=== PATIENT | female | born 1955 | race Caucasian/White ===

== ENCOUNTER 2017-07-11 17:43 | Inpatient (IN) ==
[2017-07-11] MEDS ORDERED: ONDANSETRON 4 MG/2 ML VIAL IV STA (19:02)
[2017-07-11] MEDS ORDERED: NITROGLYCERIN 2% OINT 1 INCH/GM PACK TOP STA (19:02)
[2017-07-11] MEDS ORDERED: ASPIRIN 325 MG TABLET PO STA (19:02)
[2017-07-11 19:07] LABS: Basophils # 0.1 10*3/uL (0.0-0.2); Eosinophils # 0.1 10*3/uL (0.0-0.87); Eosinophils % 1.3 % (0.00-10.9); Hematocrit 41.1 VOL% (35.7-47.0); Hemoglobin 13.7 GM/DL (12.0-16.0); Immature Granulocytes % 0.5 %; Immature Granulocytes Absolute 0.05 #; Lymphocytes # 2.6 10*3/uL (1.4-4.0); Mean Corpuscular HGB Conc 33.3 GM/DL (32-36); Mean Corpuscular Hemoglobin 30 PG (27-34); Mean Corpuscular Volume 90.1 FL (87-102); Mean Platelet Volume 9.7 FL (9.6-12.0); Monocytes # 0.7 10*3/uL (0.11-0.8); Monocytes % 6.6 % (1.7-12.7); Neutrophils # 6.3 10*3/uL (1.4-7.4); Neutrophils % 64.6 % (38.7-73.9); Platelet Count 356 T/CUMM (130-400); Red Blood Count 4.56 MC/CUMM (3.8-5.5); Red Cell Distribution Width 12.7 % (9.3-17.3); White Blood Count 9.8 T/CUMM (4-12)
[2017-07-11] MEDS ORDERED: KETOROLAC 30 MG/1 ML VIAL IV STA (19:10)
[2017-07-11 19:24] LABS: Alanine Aminotransferase 16 U/L (13-56); Alkaline Phosphatase 95 U/L (45-117); Aspartate Amino Transferase 12 U/L (0-37); Bilirubin,Total < 0.39 MG/DL (0.2-1.0); Blood Urea Nitrogen 18 MG/DL (7-18); Calcium 8.4 MG/DL (8.5-10.1); Glucose 222 MG/DL (74-106); Sodium 136 MMOL/L (136-145); Total Protein 7.2 G/DL (6.4-8.3)
[2017-07-11] MEDS ORDERED: ASPIRIN 325 MG TABLET ONE (19:45)
[2017-07-11] MEDS ORDERED: ONDANSETRON 4 MG/2 ML VIAL ONE (19:45)
[2017-07-11] MEDS ORDERED: NITROGLYCERIN 2% OINT 1 INCH/GM PACK TOP ONE (19:45)
[2017-07-11] MEDS ORDERED: KETOROLAC 30 MG/1 ML VIAL ONE (19:45)
[2017-07-11] MEDS ORDERED: ACETAMINOPHEN 325 MG TABLET PO PRN (20:32)
[2017-07-11] MEDS ORDERED: DOCUSATE SODIUM 100 MG CAPSULE PO PRN (20:32)
[2017-07-11] MEDS ORDERED: BENZONATATE 100 MG CAPSULE PO PRN (20:36)
[2017-07-11] MEDS ORDERED: METHOCARBAMOL 500 MG TABLET PO PRN (20:36)
[2017-07-11] MEDS ORDERED: DEXTROSE 50% 25 GM/50 ML VIAL IV PRN (20:41)
[2017-07-11] MEDS ORDERED: GLUCAGON 1 MG VIAL IM PRN (20:41)
[2017-07-11] MEDS ORDERED: TIAGABINE HCL PO SCH (21:00)
[2017-07-11] MEDS: POTASSIUM CHLORIDE 10 MEQ TABLET PO SCH (23:16)
[2017-07-11] MEDS: ENOXAPARIN 40 MG/0.4 ML SYRINGE SUBCUT SCH (23:16)
[2017-07-11] MEDS: ESTROGENS (CONJ) 0.625 MG TABLET PO SCH (23:17)
[2017-07-11] MEDS: CARVEDILOL 6.25 MG TABLET PO SCH (23:17)
[2017-07-11] MEDS: PRAVASTATIN 40 MG TABLET PO SCH (23:17)
[2017-07-11] MEDS: amLODIPine 10 MG TABLET PO SCH (23:17)
[2017-07-11] MEDS: DULoxetine 30 MG CAPSULE PO SCH (23:17)
[2017-07-11] MEDS: INSULIN REGULAR 100 UNIT/ML SUBCUT SCH (23:18)
[2017-07-11] MEDS: INSULIN GLARGINE 100 UNIT/ML SUBCUT SCH (23:18)
[2017-07-11] MEDS: LISINOPRIL/HCTZ 20-25 MG TABLET PO SCH (23:18)
[2017-07-11] MEDS: INSULIN LISPRO 100 UNIT/ML SUBCUT SCH (23:19)
[2017-07-11] MEDS: CLOBETASOL 0.05% CREAM 15 GM TUBE TOP SCH (23:32)
[2017-07-12 00:01] LABS: Risk Ratio 4.56
[2017-07-12 01:37] LABS: Basophils # 0.1 10*3/uL (0.0-0.2); Basophils % 0.7 % (0.0-0.8); Eosinophils # 0.1 10*3/uL (0.0-0.87); Eosinophils % 1.5 % (0.00-10.9); Hematocrit 36.1 VOL% (35.7-47.0); Hemoglobin 12.5 GM/DL (12.0-16.0); Immature Granulocytes % 1.2 %; Lymphocytes # 2.5 10*3/uL (1.4-4.0); Lymphocytes % 29.2 % (21.3-54.2); Mean Corpuscular HGB Conc 34.6 GM/DL (32-36); Mean Corpuscular Hemoglobin 31 PG (27-34); Mean Corpuscular Volume 88.9 FL (87-102); Mean Platelet Volume 9.4 FL (9.6-12.0); Monocytes # 0.6 10*3/uL (0.11-0.8); Monocytes % 7.3 % (1.7-12.7); Neutrophils # 5.1 10*3/uL (1.4-7.4); Neutrophils % 60.1 % (38.7-73.9); Platelet Count 300 T/CUMM (130-400); Red Blood Count 4.06 MC/CUMM (3.8-5.5); Red Cell Distribution Width 12.7 % (9.3-17.3); White Blood Count 8.5 T/CUMM (4-12)
[2017-07-12 02:06] LABS: Calcium 8.2 MG/DL (8.5-10.1); Osmolality,Calculated 284.1 MOS/KG (273-304); Potassium 4.1 MMOL/L (3.5-5.1)
[2017-07-12] MEDS: LEVOTHYROXINE 150 MCG TABLET PO SCH (06:16)
[2017-07-12] MEDS ORDERED: KETOROLAC 30 MG/1 ML VIAL IV ONE (08:07)
[2017-07-12] MEDS: INSULIN REGULAR 100 UNIT/ML SUBCUT SCH ×4 (08:51→22:49)
[2017-07-12] MEDS: INSULIN LISPRO 100 UNIT/ML SUBCUT SCH ×4 (08:51→22:47)
[2017-07-12] MEDS ORDERED: MAGNESIUM SULF RIDER 2 GM in PREMIX 1 EACH IV PRN (10:20)
[2017-07-12] MEDS ORDERED: POTASSIUM CHLORIDE RIDER 10 MEQ in PREMIX 1 EACH IV PRN (10:20)
[2017-07-12] MEDS ORDERED: DIAZEPAM 5 MG TABLET PO ONE (10:20)
[2017-07-12] MEDS ORDERED: diphenhydrAMINE CAP 25 MG CAPSULE PO ONE (10:20)
[2017-07-12] MEDS: CARVEDILOL 6.25 MG TABLET PO SCH ×2 (10:41→21:41)
[2017-07-12] MEDS: PANTOPRAZOLE 40 MG TABLET PO SCH (10:41)
[2017-07-12] MEDS: FUROSEMIDE 40 MG TABLET PO SCH ×2 (10:41→17:27)
[2017-07-12] MEDS: CLOBETASOL 0.05% CREAM 15 GM TUBE TOP SCH ×2 (10:41→21:41)
[2017-07-12] MEDS: ASPIRIN EC 81 MG TABLET PO SCH (10:42)
[2017-07-12] MEDS ORDERED: VERAPAMIL 5 MG/2 ML VIAL ONE (12:44)
[2017-07-12] MEDS ORDERED: HEPARIN/NACL 0.9% 2 UNITS/ML 2,000 ML IV ONE (12:44)
[2017-07-12] MEDS ORDERED: NITROGLYCERIN DRIP 50 MG/250 ML BOTTLE IV ONE (12:44)
[2017-07-12] MEDS ORDERED: LIDOCAINE 1% 20 ML VIAL ONE (12:44)
[2017-07-12] MEDS ORDERED: MIDAZOLAM 2 MG/2 ML VIAL ONE (13:20)
[2017-07-12] MEDS ORDERED: fentaNYL 100 MCG/2 ML VIAL ONE (13:20)
[2017-07-12] MEDS ORDERED: ENOXAPARIN 60 MG/0.6 ML SYRINGE ONE (13:31)
[2017-07-12] MEDS ORDERED: KETOROLAC 30 MG/1 ML VIAL IV PRN (14:18)
[2017-07-12] MEDS ORDERED: SODIUM CHLORIDE 0.45% 1,000 ML IV SCH (14:30)
[2017-07-12] MEDS: ONDANSETRON 4 MG/2 ML VIAL IV PRN (21:39)
[2017-07-12] MEDS: DULoxetine 30 MG CAPSULE PO SCH (21:40)
[2017-07-12] MEDS: LISINOPRIL/HCTZ 20-25 MG TABLET PO SCH (21:41)
[2017-07-12] MEDS: POTASSIUM CHLORIDE 10 MEQ TABLET PO SCH (21:41)
[2017-07-12] MEDS: amLODIPine 10 MG TABLET PO SCH (21:41)
[2017-07-12] MEDS: PRAVASTATIN 40 MG TABLET PO SCH (21:41)
[2017-07-12] MEDS: ESTROGENS (CONJ) 0.625 MG TABLET PO SCH (21:41)
[2017-07-12] MEDS: ENOXAPARIN 40 MG/0.4 ML SYRINGE SUBCUT SCH (21:42)
[2017-07-12] MEDS: INSULIN GLARGINE 100 UNIT/ML SUBCUT SCH (22:46)
[2017-07-13] MEDS: ONDANSETRON 4 MG/2 ML VIAL IV PRN (02:47)
[2017-07-13 05:13] LABS: Calcium 7.9 MG/DL (8.5-10.1); Osmolality,Calculated 279.2 MOS/KG (273-304); Potassium 4.5 MMOL/L (3.5-5.1)
[2017-07-13] MEDS: LEVOTHYROXINE 150 MCG TABLET PO SCH (06:10)
[2017-07-13] MEDS ORDERED: SODIUM CHLORIDE 0.9% 500 ML IV ONE (07:37)
[2017-07-13] MEDS: INSULIN REGULAR 100 UNIT/ML SUBCUT SCH ×4 (08:07→22:25)
[2017-07-13] MEDS: INSULIN LISPRO 100 UNIT/ML SUBCUT SCH ×4 (08:55→22:27)
[2017-07-13] MEDS: PANTOPRAZOLE 40 MG TABLET PO SCH (08:55)
[2017-07-13] MEDS: ASPIRIN EC 81 MG TABLET PO SCH (08:55)
[2017-07-13] MEDS: SODIUM CHLORIDE 0.9% 1,000 ML IV SCH ×2 (08:55→23:59)
[2017-07-13] MEDS: CARVEDILOL 6.25 MG TABLET PO SCH ×2 (08:55→22:25)
[2017-07-13] MEDS: CLOBETASOL 0.05% CREAM 15 GM TUBE TOP SCH ×2 (08:59→22:25)
[2017-07-13 12:45] LABS: Calcium 7.5 MG/DL (8.5-10.1); Potassium 4.3 MMOL/L (3.5-5.1)
[2017-07-13] MEDS: ESTROGENS (CONJ) 0.625 MG TABLET PO SCH (22:24)
[2017-07-13] MEDS: amLODIPine 10 MG TABLET PO SCH (22:25)
[2017-07-13] MEDS: PRAVASTATIN 40 MG TABLET PO SCH (22:25)
[2017-07-13] MEDS: DULoxetine 30 MG CAPSULE PO SCH (22:25)
[2017-07-13] MEDS: POTASSIUM CHLORIDE 10 MEQ TABLET PO SCH (22:25)
[2017-07-13] MEDS: ENOXAPARIN 40 MG/0.4 ML SYRINGE SUBCUT SCH (22:26)
[2017-07-13] MEDS: INSULIN GLARGINE 100 UNIT/ML SUBCUT SCH (22:30)
[2017-07-14 05:34] LABS: Calcium 7.2 MG/DL (8.5-10.1); Osmolality,Calculated 284.2 MOS/KG (273-304); Potassium 4.4 MMOL/L (3.5-5.1)
[2017-07-14] MEDS: LEVOTHYROXINE 150 MCG TABLET PO SCH (06:10)
[2017-07-14 08:03] VITALS: BP 129/61
[2017-07-14] MEDS: PANTOPRAZOLE 40 MG TABLET PO SCH (09:18)
[2017-07-14] MEDS: CARVEDILOL 6.25 MG TABLET PO SCH (09:18)
[2017-07-14] MEDS: ASPIRIN EC 81 MG TABLET PO SCH (09:18)
[2017-07-14] MEDS: INSULIN REGULAR 100 UNIT/ML SUBCUT SCH (09:18)
[2017-07-14] MEDS: INSULIN LISPRO 100 UNIT/ML SUBCUT SCH (09:19)
[2017-07-14] MEDS: CLOBETASOL 0.05% CREAM 15 GM TUBE TOP SCH (09:22)
[2017-07-14] MEDS ORDERED: INFLUENZA VIRUS VACCINE 0.5 ML SYRINGE IM ONE (11:19)
[2017-07-14] MEDS ORDERED: PNEUMOCOCCAL VACCINE (23 VALENT) 0.5 ML VIAL IM ONE (11:20)
== END 2017-07-14 11:57 | disposition home or self-care (01) | DRG 287 ==
LOC: UNDODISIN → N.ED 17:43 → N.EDINP 20:32 → N.TELES 21:51 → UNDODISIN 07-13 13:34
PROVIDERS: ADMIT Internal Medicine; ATTEND Internal Medicine
PROC: CLCCHCL (ICD-10-PCS; 2017-07-12 12:45)

== ENCOUNTER 2017-08-09 13:27 | Inpatient (IN) ==
[2017-08-09] MEDS ORDERED: MORPHINE 2 MG/1 ML SYRINGE IV STA (15:49)
[2017-08-09] MEDS ORDERED: ASPIRIN 325 MG TABLET PO STA (15:49)
[2017-08-09] MEDS ORDERED: ONDANSETRON 4 MG/2 ML VIAL IV STA (15:49)
[2017-08-09] MEDS ORDERED: FUROSEMIDE 100 MG/10 ML VIAL IV STA (15:49)
[2017-08-09] MEDS ORDERED: ALBUTEROL/IPRATROPIUM 3 ML NEB RESP TX STA (15:49)
[2017-08-09 15:56] LABS: Basophils # 0.1 10*3/uL (0.0-0.2); Basophils % 0.9 % (0.0-0.8); Eosinophils # 0.3 10*3/uL (0.0-0.87); Eosinophils % 3.3 % (0.00-10.9); Hemoglobin 12.6 GM/DL (12.0-16.0); Immature Granulocytes % 0.3 %; Immature Granulocytes Absolute 0.03 #; Lymphocytes # 2.1 10*3/uL (1.4-4.0); Lymphocytes % 22.3 % (21.3-54.2); Mean Corpuscular HGB Conc 32.3 GM/DL (32-36); Mean Corpuscular Hemoglobin 30 PG (27-34); Mean Corpuscular Volume 91.3 FL (87-102); Mean Platelet Volume 9.6 FL (9.6-12.0); Monocytes # 0.7 10*3/uL (0.11-0.8); Monocytes % 7.6 % (1.7-12.7); Neutrophils # 6.1 10*3/uL (1.4-7.4); Neutrophils % 65.6 % (38.7-73.9); Platelet Count 286 T/CUMM (130-400); Red Blood Count 4.27 MC/CUMM (3.8-5.5); Red Cell Distribution Width 12.9 % (9.3-17.3); White Blood Count 9.2 T/CUMM (4-12)
[2017-08-09] MEDS ORDERED: ONDANSETRON 4 MG/2 ML VIAL ONE (15:56)
[2017-08-09] MEDS ORDERED: MORPHINE 2 MG/1 ML SYRINGE ONE (15:56)
[2017-08-09] MEDS ORDERED: ASPIRIN 325 MG TABLET ONE (15:57)
[2017-08-09] MEDS ORDERED: FUROSEMIDE 100 MG/10 ML VIAL ONE (15:57)
[2017-08-09 16:01] LABS: PT Patient Result 10.3 SECS
[2017-08-09 16:23] LABS: Alanine Aminotransferase 21 U/L (13-56); Albumin 2.8 G/DL (3.4-5.0); Alkaline Phosphatase 118 U/L (45-117); Aspartate Amino Transferase 16 U/L (0-37); Blood Urea Nitrogen 14 MG/DL (7-18); Calcium 8.5 MG/DL (8.5-10.1); Glucose 102 MG/DL (74-106); Osmolality,Calculated 273.8 MOS/KG (273-304); Potassium 3.6 MMOL/L (3.5-5.1); Sodium 137 MMOL/L (136-145); Troponin I Only < 0.015 NG/ML (0.00-0.045)
[2017-08-09 17:02] LABS: Apearance,Urine CLEAR (Clear); Bacteria,Urine Occasional /HPF (Few); Bilirubin,Urine Negative (Negative); Blood, Urine Negative (Negative); Glucose,Urine (UA) Negative (Negative); Ketones,Urine Negative (Negative); Mucus,Urine Occasional /LPF (Occasional); Nitrite,Urine Negative (Negative); Protein,Urine Negative; RBC,Urine 5 /HPF (0-4); Urine Color Yellow (Yellow); Urine Specific Gravity 1.006 (1.001-1.035); Urine Urobilinogen < 2.0 EU/DL (0.2-1.0); WBC,Urine 1 /HPF (0-6)
[2017-08-09] MEDS ORDERED: GLUCAGON 1 MG VIAL IM PRN (17:43)
[2017-08-09] MEDS ORDERED: ACETAMINOPHEN 325 MG TABLET PO PRN (17:43)
[2017-08-09] MEDS ORDERED: DEXTROSE 50% 25 GM/50 ML VIAL IV PRN (17:43)
[2017-08-09] MEDS ORDERED: MAGNESIUM SULF RIDER 4 GM in PREMIX 1 EACH IV PRN (17:45)
[2017-08-09] MEDS ORDERED: MAGNESIUM SULF RIDER 2 GM in PREMIX 1 EACH IV PRN (17:45)
[2017-08-09] MEDS ORDERED: BENZONATATE 100 MG CAPSULE PO PRN (17:46)
[2017-08-09] MEDS ORDERED: METHOCARBAMOL 500 MG TABLET PO PRN (17:46)
[2017-08-09] MEDS ORDERED: traMADol 50 MG TABLET PO PRN (17:46)
[2017-08-09] MEDS ORDERED: TIAGABINE HCL PO SCH (21:00)
[2017-08-09] MEDS: PRAVASTATIN 40 MG TABLET PO SCH (22:47)
[2017-08-09] MEDS: CARVEDILOL 12.5 MG TABLET PO SCH (22:47)
[2017-08-09] MEDS: ESTROGENS (CONJ) 0.625 MG TABLET PO SCH (22:47)
[2017-08-09] MEDS: LIOTHYRONINE 25 MCG TABLET PO SCH (22:48)
[2017-08-09] MEDS: POTASSIUM CHLORIDE 10 MEQ TABLET PO SCH (22:48)
[2017-08-09] MEDS: DULoxetine 30 MG CAPSULE PO SCH (22:48)
[2017-08-09] MEDS: FUROSEMIDE 40 MG/4 ML VIAL IV SCH (22:49)
[2017-08-09] MEDS: ENOXAPARIN 40 MG/0.4 ML SYRINGE SUBCUT SCH (22:55)
[2017-08-10] MEDS: INSULIN LISPRO PROTAMINE/LISPRO 75/25 100 UNIT/ML SUBCUT SCH ×3 (00:07→22:48)
[2017-08-10] MEDS: INSULIN REGULAR 100 UNIT/ML SUBCUT SCH ×5 (00:07→22:48)
[2017-08-10 06:23] LABS: Basophils # 0.1 10*3/uL (0.0-0.2); Basophils % 0.6 % (0.0-0.8); Eosinophils # 0.3 10*3/uL (0.0-0.87); Eosinophils % 3.3 % (0.00-10.9); Hematocrit 34.4 VOL% (35.7-47.0); Hemoglobin 11.3 GM/DL (12.0-16.0); Immature Granulocytes % 0.3 %; Immature Granulocytes Absolute 0.02 #; Lymphocytes # 2.1 10*3/uL (1.4-4.0); Lymphocytes % 25.9 % (21.3-54.2); Mean Corpuscular HGB Conc 32.8 GM/DL (32-36); Mean Corpuscular Hemoglobin 30 PG (27-34); Mean Corpuscular Volume 90.8 FL (87-102); Mean Platelet Volume 9.4 FL (9.6-12.0); Monocytes # 0.8 10*3/uL (0.11-0.8); Monocytes % 9.4 % (1.7-12.7); Neutrophils # 4.8 10*3/uL (1.4-7.4); Neutrophils % 60.5 % (38.7-73.9); Platelet Count 251 T/CUMM (130-400); Red Blood Count 3.79 MC/CUMM (3.8-5.5); Red Cell Distribution Width 12.9 % (9.3-17.3)
[2017-08-10] MEDS: CLOBETASOL 0.05% CREAM 15 GM TUBE TOP SCH ×3 (06:54→21:52)
[2017-08-10 07:07] LABS: Osmolality,Calculated 282.4 MOS/KG (273-304); Thyroid Stimulating Hormone 4.42 uIU/ml (0.358-3.74)
[2017-08-10] MEDS: ONDANSETRON 4 MG/2 ML VIAL IV PRN (08:02)
[2017-08-10] MEDS: FUROSEMIDE 40 MG/4 ML VIAL IV SCH ×2 (08:03→15:50)
[2017-08-10] MEDS: LIOTHYRONINE 25 MCG TABLET PO SCH ×2 (10:35→21:50)
[2017-08-10] MEDS: ASPIRIN EC 81 MG TABLET PO SCH (10:35)
[2017-08-10] MEDS: LOSARTAN 50 MG TABLET PO SCH (10:36)
[2017-08-10] MEDS: POTASSIUM CHLORIDE 10 MEQ TABLET PO SCH ×2 (10:36→21:51)
[2017-08-10] MEDS: MAGNESIUM OXIDE 400 MG TABLET PO SCH (10:36)
[2017-08-10] MEDS: CARVEDILOL 12.5 MG TABLET PO SCH ×2 (10:36→21:51)
[2017-08-10] MEDS: PANTOPRAZOLE 40 MG TABLET PO SCH (10:37)
[2017-08-10] MEDS: DULoxetine 30 MG CAPSULE PO SCH (21:50)
[2017-08-10] MEDS: ENOXAPARIN 40 MG/0.4 ML SYRINGE SUBCUT SCH (21:51)
[2017-08-10] MEDS: PRAVASTATIN 40 MG TABLET PO SCH (21:51)
[2017-08-10] MEDS: ESTROGENS (CONJ) 0.625 MG TABLET PO SCH (22:44)
[2017-08-11 06:16] LABS: Basophils # 0.1 10*3/uL (0.0-0.2); Basophils % 0.5 % (0.0-0.8); Eosinophils # 0.2 10*3/uL (0.0-0.87); Hematocrit 33.8 VOL% (35.7-47.0); Hemoglobin 11.2 GM/DL (12.0-16.0); Immature Granulocytes % 0.3 %; Immature Granulocytes Absolute 0.03 #; Lymphocytes % 21.5 % (21.3-54.2); Mean Corpuscular HGB Conc 33.1 GM/DL (32-36); Mean Corpuscular Hemoglobin 30 PG (27-34); Mean Corpuscular Volume 89.9 FL (87-102); Mean Platelet Volume 9.4 FL (9.6-12.0); Monocytes # 0.9 10*3/uL (0.11-0.8); Neutrophils % 65.7 % (38.7-73.9); Platelet Count 261 T/CUMM (130-400); Red Blood Count 3.76 MC/CUMM (3.8-5.5); Red Cell Distribution Width 12.8 % (9.3-17.3); White Blood Count 9.1 T/CUMM (4-12)
[2017-08-11 06:50] LABS: Calcium 8.2 MG/DL (8.5-10.1); Osmolality,Calculated 277.8 MOS/KG (273-304); Potassium 3.9 MMOL/L (3.5-5.1)
[2017-08-11] MEDS: FUROSEMIDE 40 MG/4 ML VIAL IV SCH (09:24)
[2017-08-11] MEDS: CARVEDILOL 12.5 MG TABLET PO SCH (09:26)
[2017-08-11] MEDS: INSULIN REGULAR 100 UNIT/ML SUBCUT SCH ×2 (09:26→13:20)
[2017-08-11] MEDS: LOSARTAN 50 MG TABLET PO SCH (09:27)
[2017-08-11] MEDS: POTASSIUM CHLORIDE 10 MEQ TABLET PO SCH (09:27)
[2017-08-11] MEDS: LIOTHYRONINE 25 MCG TABLET PO SCH (09:27)
[2017-08-11] MEDS: MAGNESIUM OXIDE 400 MG TABLET PO SCH (09:27)
[2017-08-11] MEDS: INSULIN LISPRO PROTAMINE/LISPRO 75/25 100 UNIT/ML SUBCUT SCH (09:29)
[2017-08-11] MEDS: ASPIRIN EC 81 MG TABLET PO SCH (09:29)
[2017-08-11] MEDS: PANTOPRAZOLE 40 MG TABLET PO SCH (09:29)
[2017-08-11 12:16] VITALS: BP 146/65
[2017-08-11] MEDS: CLOBETASOL 0.05% CREAM 15 GM TUBE TOP SCH (12:56)
[2017-08-11] MEDS: ONDANSETRON 4 MG/2 ML VIAL IV PRN (13:10)
== END 2017-08-11 16:53 | disposition home health service (06) | DRG 292 ==
LOC: N.EDINP 13:27 → N.ED 13:27 → N.TELEN 18:45 → SUATTDRO 08-10 12:41
PROVIDERS: ADMIT Internal Medicine; ATTEND Internal Medicine Cardiovascular Disease

== ENCOUNTER 2018-08-09 05:11 | Inpatient (IN) ==
[2018-08-09] MEDS ORDERED: VANCOMYCIN 1,000 MG VIAL ONE (05:57)
[2018-08-09] MEDS ORDERED: FAMOTIDINE 20 MG TABLET PO ONE (06:00)
[2018-08-09] MEDS ORDERED: ROPIVACAINE 0.5% 30 ML VIAL ONE (06:26)
[2018-08-09] MEDS ORDERED: FAMOTIDINE 20 MG TABLET ONE (06:29)
[2018-08-09] MEDS ORDERED: LACTATED RINGERS 1,000 ML IV SCH (06:30)
[2018-08-09] MEDS ORDERED: VANCOMYCIN INJ 1,000 MG in SODIUM CHLORIDE 0.9% 250 ML IV ONE (06:30)
[2018-08-09] MEDS ORDERED: ceFAZolin 2,000 MG in PREMIX 1 EACH IV ONE (06:30)
[2018-08-09] MEDS ORDERED: BACITRACIN OINT 0.9 GM PACK TOP ONE (06:46)
[2018-08-09 06:49] LABS: Calcium 9.7 MG/DL (8.5-10.1); Osmolality,Calculated 274.2 MOS/KG (273-304); Potassium 3.5 MMOL/L (3.5-5.1)
[2018-08-09] MEDS ORDERED: ALBUTEROL/IPRATROPIUM 3 ML NEB RESP TX PRN (08:36)
[2018-08-09] MEDS ORDERED: ONDANSETRON 4 MG TABLET PO PRN (08:36)
[2018-08-09] MEDS ORDERED: BENZONATATE 100 MG CAPSULE PO PRN (08:36)
[2018-08-09] MEDS ORDERED: MORPHINE 4 MG/1 ML VIAL IV PRN ×2 (08:39)
[2018-08-09] MEDS ORDERED: ONDANSETRON 4 MG/2 ML VIAL IV PRN (08:39)
[2018-08-09] MEDS ORDERED: diphenhydrAMINE CAP 25 MG CAPSULE PO PRN (08:39)
[2018-08-09] MEDS ORDERED: ZALEPLON 5 MG CAPSULE PO PRN (08:39)
[2018-08-09] MEDS ORDERED: oxyCODONE IR 5 MG TABLET PO PRN (08:39)
[2018-08-09] MEDS ORDERED: DEXTROSE 50% 25 GM/50 ML VIAL IV PRN (08:42)
[2018-08-09] MEDS ORDERED: GLUCAGON 1 MG VIAL IM PRN (08:42)
[2018-08-09] MEDS ORDERED: PROPOFOL 200 MG/20 ML VIAL IV ONE (08:57)
[2018-08-09] MEDS ORDERED: PROPOFOL 500 MG/50 ML BOTTLE IV ONE (08:58)
[2018-08-09] MEDS ORDERED: ONDANSETRON 4 MG/2 ML VIAL ONE (08:58)
[2018-08-09] MEDS ORDERED: MIDAZOLAM 2 MG/2 ML VIAL ONE (08:58)
[2018-08-09] MEDS ORDERED: BUPIVACAINE SPINAL 0.75% 2 ML AMP SPINAL ONE (08:58)
[2018-08-09] MEDS ORDERED: TRANEXAMIC ACID 1,000 MG/10 ML VIAL ONE (08:58)
[2018-08-09] MEDS ORDERED: fentaNYL 100 MCG/2 ML VIAL ONE (08:58)
[2018-08-09] MEDS ORDERED: SODIUM CHLORIDE 0.9% 100 ML IV ONE (08:58)
[2018-08-09] MEDS ORDERED: TIAGABINE HCL 4 MG PO SCH (09:00)
[2018-08-09] MEDS ORDERED: MAGNESIUM OXIDE 400 MG TABLET PO SCH (09:00)
[2018-08-09] MEDS: POTASSIUM CHLORIDE 10 MEQ TABLET PO SCH ×3 (09:00→21:34)
[2018-08-09] MEDS: GABAPENTIN 300 MG CAPSULE PO SCH ×3 (09:00→21:34)
[2018-08-09] MEDS ORDERED: DOCUSATE SODIUM 100 MG CAPSULE PO SCH (09:00)
[2018-08-09] MEDS ORDERED: MAGNESIUM SULF RIDER 2 GM in PREMIX 1 EACH IV PRN (10:29)
[2018-08-09] MEDS ORDERED: MAGNESIUM SULF RIDER 4 GM in PREMIX 1 EACH IV PRN (10:29)
[2018-08-09 11:41] LABS: Basophils # 0.1 10*3/uL (0.0-0.2); Basophils % 0.8 % (0.0-0.8); Eosinophils # 0.2 10*3/uL (0.0-0.87); Eosinophils % 1.4 % (0.00-10.9); Hematocrit 38.6 VOL% (35.7-47.0); Hemoglobin 11.9 GM/DL (12.0-16.0); Immature Granulocytes % 1.4 %; Immature Granulocytes Absolute 0.15 #; Lymphocytes # 2.2 10*3/uL (1.4-4.0); Lymphocytes % 19.7 % (21.3-54.2); Mean Corpuscular HGB Conc 30.8 GM/DL (32-36); Mean Corpuscular Hemoglobin 27 PG (27-34); Mean Corpuscular Volume 88.5 FL (87-102); Mean Platelet Volume 9.6 FL (9.6-12.0); Monocytes % 8.6 % (1.7-12.7); Neutrophils # 7.5 10*3/uL (1.4-7.4); Neutrophils % 68.1 % (38.7-73.9); Platelet Count 217 T/CUMM (130-400); Red Blood Count 4.36 MC/CUMM (3.8-5.5); Red Cell Distribution Width 13.8 % (9.3-17.3); White Blood Count 11.1 T/CUMM (4-12)
[2018-08-09 11:49] LABS: Hypochromasia 1+; Platelet Estimate Adequate
[2018-08-09 11:51] LABS: Osmolality,Calculated 275.4 MOS/KG (273-304); Potassium 3.6 MMOL/L (3.5-5.1)
[2018-08-09] MEDS: POTASSIUM CHLORIDE INJ 20 MEQ in LACTATED RINGERS 1,000 ML IV SCH ×3 (12:10→22:55)
[2018-08-09] MEDS: oxyCODONE IR 5 MG TABLET PO PRN ×2 (12:10→21:35)
[2018-08-09] MEDS: CARVEDILOL 12.5 MG TABLET PO SCH ×2 (12:57→21:34)
[2018-08-09] MEDS: KETOROLAC 30 MG/1 ML VIAL IV SCH ×2 (12:57→19:54)
[2018-08-09] MEDS: DOCUSATE SODIUM 100 MG CAPSULE PO SCH (13:12)
[2018-08-09] MEDS: SPIRONOLACTONE 25 MG TABLET PO SCH (13:12)
[2018-08-09] MEDS: FAMOTIDINE 20 MG TABLET PO SCH ×2 (13:13→21:34)
[2018-08-09] MEDS: LOSARTAN 25 MG TABLET PO SCH (13:13)
[2018-08-09] MEDS: INSULIN LISPRO 100 UNIT/ML SUBCUT SCH ×3 (13:14→21:37)
[2018-08-09] MEDS: metOLazone 5 MG TABLET PO SCH (13:14)
[2018-08-09] MEDS: ACETAMINOPHEN 500 MG TABLET PO SCH ×2 (13:15→19:52)
[2018-08-09] MEDS: ceFAZolin 2,000 MG in PREMIX 1 EACH IV SCH ×2 (14:36→21:38)
[2018-08-09] MEDS: FUROSEMIDE 20 MG TABLET PO SCH (15:44)
[2018-08-09] MEDS: DULoxetine 30 MG CAPSULE PO SCH (21:32)
[2018-08-09] MEDS: MAGNESIUM OXIDE 400 MG TABLET PO SCH (21:33)
[2018-08-09] MEDS: ESTROGENS (CONJ) 0.625 MG TABLET PO SCH (21:33)
[2018-08-09] MEDS: MONTELUKAST 10 MG TABLET PO SCH (21:33)
[2018-08-09] MEDS: ATORVASTATIN 80 MG TABLET PO SCH (21:34)
[2018-08-09] MEDS: INSULIN LISPRO PROTAMINE/LISPRO 75/25 100 UNIT/ML SUBCUT SCH (21:36)
[2018-08-10] MEDS: KETOROLAC 30 MG/1 ML VIAL IV SCH ×2 (01:20→06:44)
[2018-08-10] MEDS: ACETAMINOPHEN 500 MG TABLET PO SCH ×2 (01:20→06:42)
[2018-08-10] MEDS: POTASSIUM CHLORIDE INJ 20 MEQ in LACTATED RINGERS 1,000 ML IV SCH ×3 (02:20→19:14)
[2018-08-10 05:18] LABS: Basophils # 0.1 10*3/uL (0.0-0.2); Basophils % 0.9 % (0.0-0.8); Eosinophils # 0.4 10*3/uL (0.0-0.87); Eosinophils % 4.4 % (0.00-10.9); Hematocrit 31.6 VOL% (35.7-47.0); Hemoglobin 9.9 GM/DL (12.0-16.0); Immature Granulocytes % 0.6 %; Immature Granulocytes Absolute 0.05 #; Lymphocytes % 24.4 % (21.3-54.2); Mean Corpuscular HGB Conc 31.3 GM/DL (32-36); Mean Corpuscular Hemoglobin 28 PG (27-34); Mean Platelet Volume 9.2 FL (9.6-12.0); Monocytes # 0.8 10*3/uL (0.11-0.8); Monocytes % 9.3 % (1.7-12.7); Neutrophils # 4.9 10*3/uL (1.4-7.4); Neutrophils % 60.4 % (38.7-73.9); Platelet Count 228 T/CUMM (130-400); Red Blood Count 3.59 MC/CUMM (3.8-5.5); Red Cell Distribution Width 14.1 % (9.3-17.3); White Blood Count 8.2 T/CUMM (4-12)
[2018-08-10 05:41] LABS: Calcium 8.3 MG/DL (8.5-10.1); Osmolality,Calculated 280.2 MOS/KG (273-304); Potassium 4.4 MMOL/L (3.5-5.1)
[2018-08-10] MEDS ORDERED: FONDAPARINUX 2.5 MG/0.5 ML SYRINGE SUBCUT SCH (06:00)
[2018-08-10] MEDS: LIOTHYRONINE 25 MCG TABLET PO SCH (06:42)
[2018-08-10] MEDS: LEVOTHYROXINE 50 MCG TABLET PO SCH (06:42)
[2018-08-10] MEDS: oxyCODONE IR 5 MG TABLET PO PRN (06:47)
[2018-08-10] MEDS ORDERED: KETOROLAC 30 MG/1 ML VIAL IV SCH (07:00)
[2018-08-10] MEDS: INSULIN LISPRO 100 UNIT/ML SUBCUT SCH ×4 (08:12→20:39)
[2018-08-10] MEDS: metOLazone 5 MG TABLET PO SCH (08:13)
[2018-08-10] MEDS: GABAPENTIN 300 MG CAPSULE PO SCH ×3 (08:14→20:39)
[2018-08-10] MEDS: DOCUSATE SODIUM 100 MG CAPSULE PO SCH (08:16)
[2018-08-10] MEDS: FAMOTIDINE 20 MG TABLET PO SCH ×2 (08:17→20:38)
[2018-08-10] MEDS: MAGNESIUM OXIDE 400 MG TABLET PO SCH ×2 (08:17→20:38)
[2018-08-10] MEDS: SPIRONOLACTONE 25 MG TABLET PO SCH (08:17)
[2018-08-10] MEDS: POTASSIUM CHLORIDE 10 MEQ TABLET PO SCH (08:17)
[2018-08-10] MEDS: CARVEDILOL 12.5 MG TABLET PO SCH (08:18)
[2018-08-10] MEDS: INSULIN LISPRO PROTAMINE/LISPRO 75/25 100 UNIT/ML SUBCUT SCH ×2 (08:18→20:39)
[2018-08-10] MEDS: LOSARTAN 25 MG TABLET PO SCH (08:19)
[2018-08-10] MEDS: FUROSEMIDE 20 MG TABLET PO SCH (08:54)
[2018-08-10] MEDS ORDERED: DICLOFENAC 1% GEL 100 GM TUBE TOP SCH (09:00)
[2018-08-10] MEDS: DICLOFENAC 1% GEL 100 GM TUBE TOP SCH ×3 (10:13→20:42)
[2018-08-10] MEDS: CLOBETASOL 0.05% CREAM 15 GM TUBE TOP SCH ×2 (10:13→20:42)
[2018-08-10] MEDS: SODIUM CHLORIDE 0.9% 1,000 ML IV SCH ×2 (10:14→20:46)
[2018-08-10] MEDS: CARVEDILOL 6.25 MG TABLET PO SCH ×2 (13:43→20:38)
[2018-08-10] MEDS ORDERED: CELECOXIB 200 MG CAPSULE PO SCH (14:41)
[2018-08-10] MEDS: MONTELUKAST 10 MG TABLET PO SCH (20:37)
[2018-08-10] MEDS: ATORVASTATIN 80 MG TABLET PO SCH (20:37)
[2018-08-10] MEDS: DULoxetine 30 MG CAPSULE PO SCH (20:37)
[2018-08-10] MEDS: ESTROGENS (CONJ) 0.625 MG TABLET PO SCH (20:37)
[2018-08-11 05:33] LABS: Basophils # 0.1 10*3/uL (0.0-0.2); Basophils % 0.6 % (0.0-0.8); Eosinophils # 0.5 10*3/uL (0.0-0.87); Eosinophils % 6.2 % (0.00-10.9); Hematocrit 29.9 VOL% (35.7-47.0); Hemoglobin 9.4 GM/DL (12.0-16.0); Immature Granulocytes % 0.5 %; Immature Granulocytes Absolute 0.04 #; Lymphocytes # 1.9 10*3/uL (1.4-4.0); Lymphocytes % 21.7 % (21.3-54.2); Mean Corpuscular HGB Conc 31.4 GM/DL (32-36); Mean Corpuscular Hemoglobin 28 PG (27-34); Mean Corpuscular Volume 87.7 FL (87-102); Mean Platelet Volume 9.5 FL (9.6-12.0); Monocytes # 0.7 10*3/uL (0.11-0.8); Monocytes % 8.2 % (1.7-12.7); Neutrophils # 5.5 10*3/uL (1.4-7.4); Neutrophils % 62.8 % (38.7-73.9); Platelet Count 223 T/CUMM (130-400); Red Blood Count 3.41 MC/CUMM (3.8-5.5); Red Cell Distribution Width 13.8 % (9.3-17.3); White Blood Count 8.7 T/CUMM (4-12)
[2018-08-11] MEDS: POTASSIUM CHLORIDE INJ 20 MEQ in LACTATED RINGERS 1,000 ML IV SCH (05:34)
[2018-08-11 05:45] LABS: Calcium 8.3 MG/DL (8.5-10.1); Osmolality,Calculated 280.2 MOS/KG (273-304); Potassium 3.9 MMOL/L (3.5-5.1)
[2018-08-11] MEDS: LIOTHYRONINE 25 MCG TABLET PO SCH (06:44)
[2018-08-11] MEDS: LEVOTHYROXINE 50 MCG TABLET PO SCH (06:44)
[2018-08-11] MEDS: INSULIN LISPRO 100 UNIT/ML SUBCUT SCH ×4 (07:43→20:27)
[2018-08-11] MEDS: CARVEDILOL 6.25 MG TABLET PO SCH ×2 (08:25→20:26)
[2018-08-11] MEDS: GABAPENTIN 300 MG CAPSULE PO SCH ×3 (08:25→20:27)
[2018-08-11] MEDS: FAMOTIDINE 20 MG TABLET PO SCH ×2 (08:25→20:26)
[2018-08-11] MEDS: MAGNESIUM OXIDE 400 MG TABLET PO SCH ×2 (08:25→20:26)
[2018-08-11] MEDS: DOCUSATE SODIUM 100 MG CAPSULE PO SCH (08:25)
[2018-08-11] MEDS: INSULIN LISPRO PROTAMINE/LISPRO 75/25 100 UNIT/ML SUBCUT SCH ×2 (08:26→20:27)
[2018-08-11] MEDS: SODIUM CHLORIDE 0.9% 1,000 ML IV SCH ×3 (08:26→20:32)
[2018-08-11] MEDS ORDERED: ENOXAPARIN 30 MG/0.3 ML SYRINGE SUBCUT SCH (08:30)
[2018-08-11] MEDS: CLOBETASOL 0.05% CREAM 15 GM TUBE TOP SCH ×2 (08:31→20:27)
[2018-08-11] MEDS: DICLOFENAC 1% GEL 100 GM TUBE TOP SCH ×3 (08:31→20:28)
[2018-08-11] MEDS: ESTROGENS (CONJ) 0.625 MG TABLET PO SCH (20:27)
[2018-08-11] MEDS: MONTELUKAST 10 MG TABLET PO SCH (20:27)
[2018-08-11] MEDS: ATORVASTATIN 80 MG TABLET PO SCH (20:27)
[2018-08-11] MEDS: DULoxetine 30 MG CAPSULE PO SCH (20:27)
[2018-08-11] MEDS: MAGNESIUM HYDROXIDE SUSP 30 ML UDCUP PO PRN (20:28)
[2018-08-12 05:08] LABS: Basophils # 0.1 10*3/uL (0.0-0.2); Basophils % 0.6 % (0.0-0.8); Eosinophils # 0.6 10*3/uL (0.0-0.87); Eosinophils % 7.6 % (0.00-10.9); Hematocrit 28.5 VOL% (35.7-47.0); Hemoglobin 9.1 GM/DL (12.0-16.0); Immature Granulocytes % 0.6 %; Immature Granulocytes Absolute 0.05 #; Lymphocytes # 1.5 10*3/uL (1.4-4.0); Lymphocytes % 19.1 % (21.3-54.2); Mean Corpuscular HGB Conc 31.9 GM/DL (32-36); Mean Corpuscular Hemoglobin 28 PG (27-34); Mean Corpuscular Volume 87.7 FL (87-102); Mean Platelet Volume 9.5 FL (9.6-12.0); Monocytes # 0.7 10*3/uL (0.11-0.8); Monocytes % 8.6 % (1.7-12.7); Neutrophils # 5.1 10*3/uL (1.4-7.4); Neutrophils % 63.5 % (38.7-73.9); Platelet Count 223 T/CUMM (130-400); Red Blood Count 3.25 MC/CUMM (3.8-5.5); Red Cell Distribution Width 13.9 % (9.3-17.3)
[2018-08-12 05:33] LABS: Calcium 8.3 MG/DL (8.5-10.1); Potassium 4.2 MMOL/L (3.5-5.1)
[2018-08-12] MEDS: LIOTHYRONINE 25 MCG TABLET PO SCH (06:08)
[2018-08-12] MEDS: LEVOTHYROXINE 50 MCG TABLET PO SCH (06:08)
[2018-08-12] MEDS: SODIUM CHLORIDE 0.9% 1,000 ML IV SCH (06:10)
[2018-08-12] MEDS: MAGNESIUM HYDROXIDE SUSP 30 ML UDCUP PO PRN (06:11)
[2018-08-12] MEDS: INSULIN LISPRO 100 UNIT/ML SUBCUT SCH ×2 (07:24→12:21)
[2018-08-12] MEDS ORDERED: ENOXAPARIN 40 MG/0.4 ML SYRINGE SUBCUT SCH (09:00)
[2018-08-12] MEDS: CARVEDILOL 6.25 MG TABLET PO SCH (09:51)
[2018-08-12] MEDS: DOCUSATE SODIUM 100 MG CAPSULE PO SCH (09:51)
[2018-08-12] MEDS: MAGNESIUM OXIDE 400 MG TABLET PO SCH (09:51)
[2018-08-12] MEDS: GABAPENTIN 300 MG CAPSULE PO SCH (09:51)
[2018-08-12] MEDS: FAMOTIDINE 20 MG TABLET PO SCH (09:52)
[2018-08-12] MEDS: INSULIN LISPRO PROTAMINE/LISPRO 75/25 100 UNIT/ML SUBCUT SCH (09:52)
[2018-08-12] MEDS: CLOBETASOL 0.05% CREAM 15 GM TUBE TOP SCH (09:55)
[2018-08-12] MEDS: DICLOFENAC 1% GEL 100 GM TUBE TOP SCH (09:55)
[2018-08-12] MEDS ORDERED: BISACODYL 10 MG SUPP RECTAL PRN (10:10)
[2018-08-12] MEDS ORDERED: SODIUM PHOSPHATE ENEMA 133 ML BOTTLE RECTAL PRN (13:00)
[2018-08-12 15:53] VITALS: BP 129/64
[2018-08-15] MEDS ORDERED: ERGOCALCIFEROL 50,000 UNIT CAPSULE PO SCH (09:00)
== END 2018-08-12 15:37 | disposition swing bed (61) | DRG 470 ==
LOC: N.OR 05:11 → N.SDSINP 05:13 → N.3E 08:40
PROVIDERS: ADMIT Orthopaedic Surgery; ATTEND Orthopaedic Surgery

== ENCOUNTER 2018-09-09 14:38 | Inpatient (IN) ==
[2018-09-09 15:53] LABS: Bilirubin,Total 0.4 MG/DL (0.2-1.0); Calcium 7.7 MG/DL (8.5-10.1); Potassium 4.2 MMOL/L (3.5-5.1); Total Protein 7.2 G/DL (6.4-8.3)
[2018-09-09 15:54] LABS: Basophils # 0.1 10*3/uL (0.0-0.2); Basophils % 0.7 % (0.0-0.8); Eosinophils # 0.3 10*3/uL (0.0-0.87); Eosinophils % 3.2 % (0.00-10.9); Hematocrit 36.1 VOL% (35.7-47.0); Immature Granulocytes % 0.4 %; Immature Granulocytes Absolute 0.04 #; Lymphocytes # 2.6 10*3/uL (1.4-4.0); Lymphocytes % 28.6 % (21.3-54.2); Mean Corpuscular HGB Conc 30.5 GM/DL (32-36); Mean Corpuscular Hemoglobin 27 PG (27-34); Mean Platelet Volume 9.4 FL (9.6-12.0); Monocytes # 0.9 10*3/uL (0.11-0.8); Monocytes % 10.2 % (1.7-12.7); Neutrophils # 5.2 10*3/uL (1.4-7.4); Neutrophils % 56.9 % (38.7-73.9); Platelet Count 344 T/CUMM (130-400); Red Blood Count 4.01 MC/CUMM (3.8-5.5); Red Cell Distribution Width 14.4 % (9.3-17.3); White Blood Count 9.1 T/CUMM (4-12)
[2018-09-09 16:02] LABS: PT Patient Result 10.4 SECS; Partial Thromboplastin Time 22.6 SECS (0-40)
[2018-09-09] MEDS ORDERED: hydrALAZINE 20 MG/1 ML VIAL IV STA (16:28)
[2018-09-09 16:31] LABS: Barbiturates Screen,Urine Negative (Negative); Benzodiazepines Screen,Urine Negative (Negative); Cannabinoid Screen,Urine Negative (Negative); Opiate Screen,Urine Negative (Negative); Phencyclidine Screen,Urine Negative (Negative)
[2018-09-09] MEDS ORDERED: hydrALAZINE 20 MG/1 ML VIAL ONE (16:31)
[2018-09-09 16:32] LABS: Apearance,Urine CLEAR (Clear); Bilirubin,Urine Negative (Negative); Blood, Urine Small mg/dL (Negative); Glucose,Urine (UA) Negative (Negative); Ketones,Urine Negative (Negative); Nitrite,Urine Negative (Negative); Protein,Urine 30 MG/DL; RBC,Urine 5 /HPF (0-4); Squamous Epithelial Cell,Urine Occasional /HPF (0-10); Urine Color Straw (Yellow); Urine Specific Gravity 1.011 (1.001-1.035); Urine Urobilinogen < 2.0 EU/DL (0.2-1.0); WBC,Urine 1 /HPF (0-6)
[2018-09-09 16:54] LABS: Sedimentation Rate-Westergren 83 MM/HR (0-30)
[2018-09-09] MEDS ORDERED: LABETALOL 20 MG/4 ML SYRINGE IV PRN (18:46)
[2018-09-09] MEDS ORDERED: DEXTROSE 50% 25 GM/50 ML SYRINGE IV PRN (18:58)
[2018-09-09] MEDS ORDERED: MAGNESIUM SULF RIDER 4 GM in PREMIX 1 EACH IV PRN (18:58)
[2018-09-09] MEDS ORDERED: GLUCAGON 1 MG VIAL IM PRN (18:58)
[2018-09-09] MEDS ORDERED: MAGNESIUM SULF RIDER 2 GM in PREMIX 1 EACH IV PRN (18:58)
[2018-09-09] MEDS ORDERED: ALBUTEROL/IPRATROPIUM 3 ML NEB RESP TX PRN (19:04)
[2018-09-09 19:19] LABS: Risk Ratio 3.79; VLDL CHOLESTEROL 99.4 MG/DL
[2018-09-09] MEDS: SODIUM CHLORIDE 0.9% 1,000 ML IV SCH (22:34)
[2018-09-09] MEDS: INSULIN LISPRO 100 UNIT/ML SUBCUT SCH (22:34)
[2018-09-09] MEDS: CLOBETASOL 0.05% CREAM 15 GM TUBE TOP SCH (22:37)
[2018-09-09] MEDS: DICLOFENAC 1% GEL 100 GM TUBE TOP SCH (22:37)
[2018-09-10 00:46] LABS: Basophils # 0.1 10*3/uL (0.0-0.2); Basophils % 0.8 % (0.0-0.8); Eosinophils # 0.3 10*3/uL (0.0-0.87); Hematocrit 33.7 VOL% (35.7-47.0); Hemoglobin 10.5 GM/DL (12.0-16.0); Immature Granulocytes % 0.5 %; Immature Granulocytes Absolute 0.04 #; Lymphocytes % 26.2 % (21.3-54.2); Mean Corpuscular HGB Conc 31.2 GM/DL (32-36); Mean Corpuscular Hemoglobin 28 PG (27-34); Mean Corpuscular Volume 88.2 FL (87-102); Mean Platelet Volume 8.9 FL (9.6-12.0); Monocytes # 0.8 10*3/uL (0.11-0.8); Monocytes % 9.8 % (1.7-12.7); Neutrophils # 4.6 10*3/uL (1.4-7.4); Neutrophils % 58.7 % (38.7-73.9); Platelet Count 317 T/CUMM (130-400); Red Blood Count 3.82 MC/CUMM (3.8-5.5); Red Cell Distribution Width 14.4 % (9.3-17.3); White Blood Count 7.8 T/CUMM (4-12)
[2018-09-10 01:17] LABS: Calcium 7.8 MG/DL (8.5-10.1); Osmolality,Calculated 279.7 MOS/KG (273-304); Potassium 3.5 MMOL/L (3.5-5.1)
[2018-09-10] MEDS: DICLOFENAC 1% GEL 100 GM TUBE TOP SCH ×4 (08:19→22:14)
[2018-09-10] MEDS: CLOBETASOL 0.05% CREAM 15 GM TUBE TOP SCH ×2 (08:19→22:14)
[2018-09-10] MEDS: ASPIRIN EC 81 MG TABLET PO SCH (08:21)
[2018-09-10] MEDS: INSULIN LISPRO 100 UNIT/ML SUBCUT SCH ×4 (08:21→22:13)
[2018-09-10] MEDS: PANTOPRAZOLE 40 MG VIAL IV SCH (08:21)
[2018-09-10] MEDS: ONDANSETRON 4 MG/2 ML VIAL IV PRN ×3 (09:43→22:45)
[2018-09-10] MEDS: SODIUM CHLORIDE 0.9% 1,000 ML IV SCH (12:03)
[2018-09-10 14:46] LABS: Folate 6.1 NG/ML (5.4-24.0)
[2018-09-10] MEDS ORDERED: INSULIN LISPRO PROTAMINE/LISPRO 75/25 100 UNIT/ML SUBCUT SCH (21:00)
[2018-09-10] MEDS ORDERED: MAGNESIUM OXIDE 400 MG TABLET PO SCH (21:00)
[2018-09-10] MEDS ORDERED: ATORVASTATIN 80 MG TABLET PO SCH (21:00)
[2018-09-10] MEDS ORDERED: ASPIRIN EC 81 MG TABLET PO SCH (21:00)
[2018-09-10] MEDS: LIOTHYRONINE 25 MCG TABLET PO SCH (21:43)
[2018-09-11] MEDS ORDERED: LEVOTHYROXINE 50 MCG TABLET PO SCH (07:00)
[2018-09-11 07:16] LABS: Basophils # 0.1 10*3/uL (0.0-0.2); Basophils % 0.8 % (0.0-0.8); Eosinophils # 0.2 10*3/uL (0.0-0.87); Hematocrit 33.6 VOL% (35.7-47.0); Hemoglobin 10.2 GM/DL (12.0-16.0); Immature Granulocytes % 0.4 %; Immature Granulocytes Absolute 0.03 #; Lymphocytes # 1.9 10*3/uL (1.4-4.0); Lymphocytes % 24.2 % (21.3-54.2); Mean Corpuscular HGB Conc 30.4 GM/DL (32-36); Mean Corpuscular Hemoglobin 27 PG (27-34); Mean Corpuscular Volume 90.3 FL (87-102); Monocytes # 0.8 10*3/uL (0.11-0.8); Monocytes % 10.4 % (1.7-12.7); Neutrophils # 4.7 10*3/uL (1.4-7.4); Neutrophils % 61.2 % (38.7-73.9); Platelet Count 288 T/CUMM (130-400); Red Blood Count 3.72 MC/CUMM (3.8-5.5); Red Cell Distribution Width 14.2 % (9.3-17.3); White Blood Count 7.7 T/CUMM (4-12)
[2018-09-11 07:34] LABS: Albumin 2.6 G/DL (3.4-5.0); Bilirubin,Total 0.5 MG/DL (0.2-1.0); Calcium 7.6 MG/DL (8.5-10.1); Potassium 3.7 MMOL/L (3.5-5.1)
[2018-09-11] MEDS ORDERED: INSULIN LISPRO PROTAMINE/LISPRO 75/25 100 UNIT/ML SUBCUT SCH (09:00)
[2018-09-11] MEDS: LIOTHYRONINE 25 MCG TABLET PO SCH (09:03)
[2018-09-11] MEDS: PANTOPRAZOLE 40 MG VIAL IV SCH (09:04)
[2018-09-11] MEDS: ASPIRIN EC 81 MG TABLET PO SCH (09:07)
[2018-09-11] MEDS: INSULIN LISPRO 100 UNIT/ML SUBCUT SCH ×2 (09:54→12:21)
[2018-09-11] MEDS: DICLOFENAC 1% GEL 100 GM TUBE TOP SCH ×2 (10:35→13:31)
[2018-09-11] MEDS: CLOBETASOL 0.05% CREAM 15 GM TUBE TOP SCH (10:35)
[2018-09-11 12:11] VITALS: BP 173/70
[2018-09-11] MEDS ORDERED: LOSARTAN 25 MG TABLET PO SCH (13:00)
[2018-09-11] MEDS ORDERED: CARVEDILOL 12.5 MG TABLET PO SCH (13:00)
== END 2018-09-11 16:08 | disposition home or self-care (01) | DRG 78 ==
LOC: EDBD → EDUNIT# → N.ED 14:38 → SUATTDRO 18:46 → N.EDINP 18:46 → N.2E 20:35
PROVIDERS: ADMIT Emergency Medicine; ATTEND Internal Medicine Infectious Disease

== ENCOUNTER 2019-05-23 11:22 | Observation (INO) ==
[2019-05-23 13:18] LABS: Basophils # 0.1 10*3/uL (0.0-0.2); Basophils % 0.7 % (0.0-0.8); Eosinophils # 0.2 10*3/uL (0.0-0.87); Eosinophils % 2.1 % (0.00-10.9); Hematocrit 39.7 VOL% (35.7-47.0); Hemoglobin 12.7 GM/DL (12.0-16.0); Immature Granulocytes % 0.7 %; Immature Granulocytes Absolute 0.07 #; Lymphocytes # 1.7 10*3/uL (1.4-4.0); Mean Corpuscular Volume 93.9 FL (87-102); Neutrophils % 73.5 % (38.7-73.9); Platelet Count 304 T/CUMM (130-400); Red Blood Count 4.23 MC/CUMM (3.8-5.5); Red Cell Distribution Width 14.7 % (9.3-17.3); White Blood Count 10.3 T/CUMM (4-12)
[2019-05-23 13:29] LABS: INR 0.9; Partial Thromboplastin Time 21.1 SECS (20.8-36.0)
[2019-05-23 13:49] LABS: Alanine Aminotransferase 18 U/L (13-56); Albumin 2.7 G/DL (3.4-5.0); Alkaline Phosphatase 111 U/L (45-117); Aspartate Amino Transferase 15 U/L (0-37); Blood Urea Nitrogen 24 MG/DL (7-18); Calcium 8.7 MG/DL (8.5-10.1); Estimated Glom Filtration Rate 66 ML/MIN; Glucose 176 MG/DL (74-106); Osmolality,Calculated 280.8 MOS/KG (273-304); Total Protein 7.7 G/DL (6.4-8.3)
[2019-05-23 14:07] LABS: Apearance,Urine CLEAR (Clear); Bilirubin,Urine Negative (Negative); Blood, Urine Small mg/dL (Negative); Glucose,Urine (UA) Negative (Negative); Hyaline Casts,Urine 52 /LPF (0-3); Ketones,Urine Negative (Negative); Mucus,Urine Occasional /LPF (Occasional); Nitrite,Urine Negative (Negative); Protein,Urine Negative; RBC,Urine 3 /HPF (0-4); Urine Color Yellow (Yellow); Urine Urobilinogen < 2.0 EU/DL (0.2-1.0); WBC,Urine <1 /HPF (0-6)
[2019-05-23] MEDS ORDERED: GLUCAGON 1 MG VIAL IM PRN (16:17)
[2019-05-23] MEDS ORDERED: DEXTROSE 10% 25 GM/250 ML BAG IV PRN (16:17)
[2019-05-23] MEDS ORDERED: ONDANSETRON 4 MG/2 ML VIAL IV PRN (16:17)
[2019-05-23] MEDS ORDERED: ACETAMINOPHEN 325 MG TABLET PO PRN (16:17)
[2019-05-23] MEDS ORDERED: METHOCARBAMOL 500 MG TABLET PO PRN (16:23)
[2019-05-23] MEDS ORDERED: BENZONATATE 100 MG CAPSULE PO PRN (16:23)
[2019-05-23 16:29] LABS: ABG HCO3 35.8 MMOL/L (20-26); ABG Oxygen Saturation 98.2 % (95-100); ABG PCO2 52.9 MM HG (35-48); ABG PH 7.465 (7.35-7.45); ABG PO2 99.6 MM HG (80-95); ABG TCO2 33.3 MMOL/L (23-27)
[2019-05-23] MEDS: INSULIN REGULAR 100 UNIT/ML SUBCUT SCH ×2 (18:02→21:51)
[2019-05-23] MEDS: PANTOPRAZOLE 40 MG TABLET PO SCH (18:02)
[2019-05-23] MEDS: ENOXAPARIN 40 MG/0.4 ML SYRINGE SUBCUT SCH (18:02)
[2019-05-23] MEDS: carvediloL 12.5 MG TABLET PO SCH (18:34)
[2019-05-23] MEDS: INSULIN LISPRO PROTAMINE/LISPRO 75/25 100 UNIT/ML SUBCUT SCH (18:34)
[2019-05-23] MEDS ORDERED: AMOXICILLIN/CLAV 875 MG TABLET PO SCH (21:00)
[2019-05-23] MEDS: ESTROGENS (CONJ) 0.625 MG TABLET PO SCH (21:53)
[2019-05-23] MEDS: POTASSIUM CHLORIDE 10 MEQ TABLET PO SCH (21:53)
[2019-05-23] MEDS: DOCUSATE/SENNA 50-8.6 MG TABLET PO SCH (21:53)
[2019-05-23] MEDS: GABAPENTIN 300 MG CAPSULE PO SCH (21:53)
[2019-05-23] MEDS: MAGNESIUM OXIDE 400 MG TABLET PO SCH (21:54)
[2019-05-23] MEDS: ATORVASTATIN 80 MG TABLET PO SCH (21:54)
[2019-05-23] MEDS: DULoxetine 30 MG CAPSULE PO SCH (21:54)
[2019-05-23] MEDS: RANITIDINE 150 MG TABLET PO SCH (21:54)
[2019-05-23] MEDS: CLOBETASOL 0.05% CREAM 15 GM TUBE TOP SCH (22:02)
[2019-05-23] MEDS: TIAGABINE PO SCH (22:02)
[2019-05-24] MEDS: LEVOTHYROXINE 112 MCG TABLET PO SCH (05:44)
[2019-05-24] MEDS: ENOXAPARIN 40 MG/0.4 ML SYRINGE SUBCUT SCH ×2 (05:45→06:23)
[2019-05-24 06:49] LABS: Basophils # 0.1 10*3/uL (0.0-0.2); Basophils % 0.8 % (0.0-0.8); Eosinophils # 0.2 10*3/uL (0.0-0.87); Hematocrit 36.5 VOL% (35.7-47.0); Hemoglobin 11.6 GM/DL (12.0-16.0); Immature Granulocytes % 0.5 %; Immature Granulocytes Absolute 0.05 #; Lymphocytes # 2.1 10*3/uL (1.4-4.0); Lymphocytes % 23.4 % (21.3-54.2); Mean Corpuscular HGB Conc 31.8 GM/DL (32-36); Mean Corpuscular Volume 92.9 FL (87-102); Mean Platelet Volume 9.2 FL (9.6-12.0); Monocytes % 8.4 % (1.7-12.7); Neutrophils % 64.9 % (38.7-73.9); Platelet Count 295 T/CUMM (130-400); Red Blood Count 3.93 MC/CUMM (3.8-5.5); Red Cell Distribution Width 14.9 % (9.3-17.3); White Blood Count 9.2 T/CUMM (4-12)
[2019-05-24 07:09] LABS: Albumin 2.6 G/DL (3.4-5.0); Bilirubin,Total 1.2 MG/DL (0.2-1.0); Calcium 8.5 MG/DL (8.5-10.1); Osmolality,Calculated 282.7 MOS/KG (273-304)
[2019-05-24 08:22] LABS: ABG Base Excess 12.3 MMOL/L (-2.5-2.5); ABG HCO3 36.1 MMOL/L (20-26); ABG Oxygen Saturation 97.8 % (95-100); ABG PCO2 52.3 MM HG (35-48); ABG PH 7.471 (7.35-7.45); ABG PO2 92.3 MM HG (80-95); ABG TCO2 33.8 MMOL/L (23-27)
[2019-05-24] MEDS: INSULIN LISPRO PROTAMINE/LISPRO 75/25 100 UNIT/ML SUBCUT SCH ×2 (09:03→17:05)
[2019-05-24] MEDS: INSULIN REGULAR 100 UNIT/ML SUBCUT SCH ×4 (09:03→21:33)
[2019-05-24] MEDS: PANTOPRAZOLE 40 MG TABLET PO SCH (09:04)
[2019-05-24] MEDS: LOSARTAN 25 MG TABLET PO SCH (09:04)
[2019-05-24] MEDS: SPIRONOLACTONE 25 MG TABLET PO SCH (09:04)
[2019-05-24] MEDS: AMOXICILLIN/CLAV 875 MG TABLET PO SCH ×2 (09:04→21:35)
[2019-05-24] MEDS: metOLazone 5 MG TABLET PO SCH (09:04)
[2019-05-24] MEDS: carvediloL 12.5 MG TABLET PO SCH ×2 (09:05→17:05)
[2019-05-24] MEDS: FUROSEMIDE 40 MG TABLET PO SCH ×2 (09:05→17:05)
[2019-05-24] MEDS: ASPIRIN EC 81 MG TABLET PO SCH (09:05)
[2019-05-24] MEDS: MAGNESIUM OXIDE 400 MG TABLET PO SCH ×4 (09:05→21:34)
[2019-05-24] MEDS: GABAPENTIN 300 MG CAPSULE PO SCH ×3 (09:06→21:34)
[2019-05-24] MEDS: POTASSIUM CHLORIDE 10 MEQ TABLET PO SCH ×3 (09:06→21:34)
[2019-05-24] MEDS: MONTELUKAST 10 MG TABLET PO SCH (09:06)
[2019-05-24] MEDS: RANITIDINE 150 MG TABLET PO SCH ×2 (09:06→21:35)
[2019-05-24] MEDS: CLOBETASOL 0.05% CREAM 15 GM TUBE TOP SCH ×2 (12:06→21:35)
[2019-05-24] MEDS: TIAGABINE PO SCH ×2 (12:07→21:35)
[2019-05-24] MEDS: ALBUTEROL/IPRATROPIUM 3 ML NEB RESP TX SCH ×2 (13:30→19:57)
[2019-05-24] MEDS: CLOPIDOGREL 75 MG TABLET PO SCH (14:16)
[2019-05-24] MEDS: ESTROGENS (CONJ) 0.625 MG TABLET PO SCH (21:34)
[2019-05-24] MEDS: DULoxetine 30 MG CAPSULE PO SCH (21:34)
[2019-05-24] MEDS: DOCUSATE/SENNA 50-8.6 MG TABLET PO SCH (21:34)
[2019-05-24] MEDS: ATORVASTATIN 80 MG TABLET PO SCH (21:35)
[2019-05-25] MEDS: ALBUTEROL/IPRATROPIUM 3 ML NEB RESP TX SCH ×3 (00:24→14:45)
[2019-05-25 05:02] LABS: Basophils # 0.1 10*3/uL (0.0-0.2); Basophils % 0.7 % (0.0-0.8); Eosinophils # 0.1 10*3/uL (0.0-0.87); Eosinophils % 1.2 % (0.00-10.9); Hematocrit 37.7 VOL% (35.7-47.0); Hemoglobin 11.8 GM/DL (12.0-16.0); Immature Granulocytes % 0.6 %; Immature Granulocytes Absolute 0.05 #; Lymphocytes # 1.9 10*3/uL (1.4-4.0); Lymphocytes % 22.4 % (21.3-54.2); Mean Corpuscular HGB Conc 31.3 GM/DL (32-36); Mean Corpuscular Volume 92.9 FL (87-102); Mean Platelet Volume 9.6 FL (9.6-12.0); Monocytes % 7.8 % (1.7-12.7); Neutrophils % 67.3 % (38.7-73.9); Platelet Count 306 T/CUMM (130-400); Red Blood Count 4.06 MC/CUMM (3.8-5.5); Red Cell Distribution Width 15.1 % (9.3-17.3); White Blood Count 8.5 T/CUMM (4-12)
[2019-05-25 05:24] LABS: Calcium 8.5 MG/DL (8.5-10.1); Osmolality,Calculated 280.1 MOS/KG (273-304)
[2019-05-25] MEDS: LEVOTHYROXINE 112 MCG TABLET PO SCH (06:25)
[2019-05-25] MEDS: ENOXAPARIN 40 MG/0.4 ML SYRINGE SUBCUT SCH (06:25)
[2019-05-25] MEDS: INSULIN LISPRO PROTAMINE/LISPRO 75/25 100 UNIT/ML SUBCUT SCH ×2 (08:29→17:05)
[2019-05-25] MEDS: FUROSEMIDE 40 MG TABLET PO SCH ×2 (08:30→17:04)
[2019-05-25] MEDS: MAGNESIUM OXIDE 400 MG TABLET PO SCH ×3 (08:30→17:05)
[2019-05-25] MEDS: PANTOPRAZOLE 40 MG TABLET PO SCH (08:30)
[2019-05-25] MEDS: CLOPIDOGREL 75 MG TABLET PO SCH (08:30)
[2019-05-25] MEDS: INSULIN REGULAR 100 UNIT/ML SUBCUT SCH ×3 (08:30→17:04)
[2019-05-25] MEDS: AMOXICILLIN/CLAV 875 MG TABLET PO SCH (08:31)
[2019-05-25] MEDS: POTASSIUM CHLORIDE 10 MEQ TABLET PO SCH ×2 (08:31→17:04)
[2019-05-25] MEDS: carvediloL 12.5 MG TABLET PO SCH ×2 (08:31→17:05)
[2019-05-25] MEDS: metOLazone 5 MG TABLET PO SCH (08:31)
[2019-05-25] MEDS: RANITIDINE 150 MG TABLET PO SCH (08:31)
[2019-05-25] MEDS: ASPIRIN EC 81 MG TABLET PO SCH (08:31)
[2019-05-25] MEDS: GABAPENTIN 300 MG CAPSULE PO SCH ×2 (08:31→17:04)
[2019-05-25] MEDS: LOSARTAN 25 MG TABLET PO SCH (08:31)
[2019-05-25] MEDS: MONTELUKAST 10 MG TABLET PO SCH (08:31)
[2019-05-25] MEDS: SPIRONOLACTONE 25 MG TABLET PO SCH (08:32)
[2019-05-25] MEDS: CLOBETASOL 0.05% CREAM 15 GM TUBE TOP SCH (08:35)
[2019-05-25] MEDS: TIAGABINE PO SCH (08:35)
[2019-05-25] MEDS ORDERED: amLODIPine 5 MG TABLET PO SCH (09:00)
[2019-05-25 15:47] VITALS: BP 125/61
== END 2019-05-25 18:06 | disposition home or self-care (01) ==
LOC: N.EDINP 11:22 → N.ED 11:22 → N.5E 17:00
PROVIDERS: ADMIT Hospitalist; ATTEND Hospitalist